=== PATIENT | male | born 1980 | race Caucasian/White ===

== ENCOUNTER 2023-10-29 12:41 | Emergency (ER) | payer OTHER ==
[2023-10-29 13:41] VITALS: BP 168/103; PULSE 104; RESP 18; TEMP 97.1; O2SAT 95
[2023-10-29] MEDS ORDERED: Sodium Chloride 0.9% 1000 ML 1,000 ML IV STA (13:44)
[2023-10-29] MEDS ORDERED: Zofran 4 MG/2 ML VIAL IV ONE (13:44)
[2023-10-29] MEDS ORDERED: SUBLIMAZE 100 MCG/2 ML IV ONE (13:44)
[2023-10-29] MEDS ORDERED: Zofran 4 MG/2 ML VIAL ONE (13:51)
[2023-10-29] MEDS ORDERED: Sodium Chloride 0.9% 1000 ML 1,000 ML ONE (13:52)
[2023-10-29] MEDS ORDERED: SUBLIMAZE 100 MCG/2 ML ONE (13:52)
[2023-10-29 14:12] LABS: Absolute Neutrophil Ct (ANC) 5.67 x10^3/uL (1.4-6.9); BASOPHIL % 0.4 % (0.0-0.4); Basophil (Absolute #) 0.03 x10^3/uL (0-0.4); Eosinophil % 0.9 % (0.00-5.0); Eosinophil (Absolute #) 0.07 x10^3/uL (0-0.5); Hematocrit 42.5 % (42-50); Hemoglobin 14.8 g/dL (12.5-18.0); Lymphocyte (Absolute #) 1.53 x10^3/uL (1.0-4.6); Mean Cell Volume 93.6 fL (78-100); Mean Corpuscular Hemoglobin 32.6 pg (26-32); Mean Corpuscular Hgb Concent. 34.8 g/dL (32-36); Mean Platelet Volume 10.1 fL (7.5-11.0); Monocyte (Absolute #) 0.34 x10^3/uL (0.0-1.3); Monocytes % 4.5 % (0.0-12.0); Neutrophil % 74.2 % (36.0-66.0); Platelet Count 258 x10^3/uL (150-450); Red Blood Count 4.54 x10^6/uL (4.1-5.6); Red Cell Distribution Width 12.5 % (11.5-14.0); White Blood Count 7.6 x10^3/uL (4.0-10.5)
[2023-10-29 14:27] LABS: ALBUMIN 4.7 g/dL (3.5-5.0); ANION GAP 14.4 MEQ/L (5-15); BILIRUBIN,TOTAL 0.7 mg/dL (0.2-1.3); Calcium 9.4 mg/dL (8.4-10.2); Creatinine 1 0.71 mg/dL (0.66-1.25); EST GLOMERULAR FILTRATION RATE 118.2 ML/MIN; Potassium 4.5 mmol/L (3.5-5.1); Total Protein 8.1 g/dL (6.3-8.2)
--- NOTE | 2023-10-29 14:31 | ERPHSYRPT ---
- History of Present Illness Time Seen by Provider: 10/29/23 14:28 Historian: patient Exam Limitations: no limitations Patient Subjective Stated Complaint: sharp stabbing colicky flank pain on left that radiates to the back since about midnight. tylenol does not help. inte rmittent nausea. no vomiting or diarrhea. ambulated to room per self without difficulty. Triage Nursing Assessment: abdomen tender, bs x4, abd soft. A&O x 3. Physician History: sharp stabbing colicky flank pain on left that radiates to the back since about midnight. tylenol does not help. intermittent nausea. no vomiting or diarrhea. Hx of kidney stone in past Timing/Duration: today Activities at Onset: none Quality: cramping Abdominal Pain Onset Location: flank Severity of Pain-Max: moderate Severity of Pain-Current: moderate Modifying Factors: Improves With: nothing Associated Symptoms: denies symptoms Previous symptoms: same symptoms as today Body Map: 1 - pain Allergies/Adverse Reactions: prochlorperazine [From Compazine] Allergy (Intermediate, Verified 10/29/23 1 3:42) Rapid Heart Beat NSAIDS (Non-Steroidal Anti-Inflamma Adverse Reaction (Verified 02/09/15 19:00) Stomach Pain Home Medications: Venlafaxine HCl [Effexor Xr] 150 mg PO DAILY 10/29/23 [History] hydrOXYzine pamoate [Vistaril] 25 mg PO Q4-6HPRN PRN 10/29/23 [History] Hx Tetanus, Diphtheria Vaccination/Date Given: Yes Hx Influenza Vaccination/Date Given: Yes (07/22/23) Hx Pneumococcal Vaccination/Date Given: No Immunizations Up to Date: Yes Travel Risk - International Travel Have you traveled outside of the country in past 3 weeks: No - Coronavirus Screening Are you exhibiting any of the following symptoms?: No - Vaccine Status Have you recieved a Covid-19 vaccination: Yes In School Suspension A[employer]: [employer] - Vaccination Dates Date of 2cond Vaccination (if applicable): 2020 - Review of Systems Constitutional: No Fever, No Chills Eyes: No Symptoms Ears, Nose, & Throat: No Symptoms Respiratory: No Cough, No Dyspnea Cardiac: No Chest Pain, No Edema, No Syncope Abdominal/Gastrointestinal: No Abdominal Pain, No Nausea, No Vomiting, No Diarrhea Genitourinary Symptoms: Flank Pain (left side), No Dysuria Musculoskeletal: No Back Pain, No Neck Pain Skin: No Rash Neurological: No Dizziness, No Focal Weakness, No Sensory Changes Psychological: No Symptoms Endocrine: No Symptoms All Other Systems: Reviewed and Negative - Past Medical History Pertinent Past Medical History: Yes Neurological History: Migraines, Seizures ENT History: No Pertinent History Cardiac History: No Pertinent History Respiratory History: Tuberculosis Endocrine Medical History: Hypothyroidism Musculoskeletal History: No Pertinent History GI Medical History: Diverticulosis, GERD History: No Pertinent History Psycho-Social History: Other Male Reproductive Disorders: No Pertinent History Other Medical History: PTSD, hemochromotosis - Past Surgical History Past Surgical History: Yes Neuro Surgical History: No Pertinent History Cardiac: No Pertinent History Respiratory: No Pertinent History Gastrointestinal: Appendectomy Genitourinary: No Pertinent History Musculoskeletal: Other Male Surgical History: No Pertinent History Other Surgical History: R THIGH SURGERY HAD SHRAPNEL REMOVED 2012 - Social History Smoking Status: Former smoker How long have you smoked: 12YEARS Exposure to second hand smoke: No Drug Use: none Patient Lives Alone: No - Nursing Vital Signs Nursing Vital Signs: Initial Vital Signs Temperature 97.1 F 10/29/23 12:42 Pulse Rate 104 H 10/29/23 12:42 Respiratory Rate 18 10/29/23 12:42 Blood Pressure 168/103 10/29/23 12:42 O2 Sat by Pulse Oximetry 95 10/29/23 12:42 Pain Scale Pain Intensity 3 - Physical Exam SpO2: 95 - Course Nursing assessment & vital signs reviewed: Yes - CT Exams Abdomen/Pelvis CT Interpretation: Tele-radiologist Report Ordered Tests: Active Orders 24 hr Category Date Time Status ABDOMEN AND PELVIS W/0 CONTRAS [CT] Stat Exams 10/29/23 13:44 Completed AMYLASE Stat Lab 10/29/23 14:05 Completed CBC W DIFF Stat Lab 10/29/23 14:05 Completed CMP Stat Lab 10/29/23 14:05 Completed LIPASE Stat Lab 10/29/23 14:05 Completed UA W/RFX UR CULTURE Stat Lab 10/29/23 13:44 Ordered Urine Triage Profile Stat Lab 10/29/23 13:44 Ordered Medication Summary Discontinued Medications Generic Name Dose Route Start Last Admin Trade Name Sera PRN Reason Stop Dose Admin Fentanyl Citrate 50 mcg 10/29/23 13:44 10/29/23 14:03 Fentanyl Citrate 100 Mcg/2 Ml* Vial IV 10/29/23 13:45 50 mcg STAT ONE Administration Fentanyl Citrate Confirm 10/29/23 13:52 Fentanyl Citrate 100 Mcg/2 Ml* Vial Administered 10/29/23 13:53 Dose 100 mcg .ROUTE .STK-MED ONE Sodium Chloride 1,000 mls @ 999 mls/hr 10/29/23 13:44 10/29/23 16:38 Sodium Chloride 0.9% 1000 Ml IV 10/29/23 14:44 Infused .Q1H1M STA Infusion Sodium Chloride Confirm 10/29/23 13:52 Sodium Chloride 0.9% 1000 Ml Administered 10/29/23 13:53 Dose 1,000 mls @ ud .ROUTE .STK-MED ONE Ketorolac Tromethamine 30 mg 10/29/23 15:41 10/29/23 15:54 Ketorolac Tromethamine 30 Mg/Ml Inj IV 10/29/23 15:42 30 mg STAT ONE Administration Ketorolac Tromethamine Confirm 10/29/23 15:52 Ketorolac Tromethamine 30 Mg/Ml Inj Administered 10/29/23 15:53 Dose 30 mg .ROUTE .STK-MED ONE Ondansetron HCl 4 mg 10/29/23 13:44 10/29/23 14:03 Ondansetron Hcl 4 Mg/2 Ml Vial IV 10/29/23 13:45 4 mg STAT ONE Administration Ondansetron HCl Confirm 10/29/23 13:51 Ondansetron Hcl 4 Mg/2 Ml Vial Administered 10/29/23 13:52 Dose 4 mg .ROUTE .STK-MED ONE Lab/Rad Data: Laboratory Result Diagrams 10/29/23 14:05 10/29/23 14:05 Laboratory Results 10/29/23 10/29/23 Range/Units 14:05 14:05 WBC 7.6 (4.0-10.5) x10^3/uL RBC 4.54 (4.1-5.6) x10^6/uL Hgb 14.8 (12.5-18.0) g/dL Hct 42.5 (42-50) % MCV 93.6 (78-100) fL MCH 32.6 H (26-32) pg MCHC 34.8 (32-36) g/dL RDW 12.5 (11.5-14.0) % Plt Count 258 (150-450) x10^3/uL MPV 10.1 (7.5-11.0) fL Gran % 74.2 H (36.0-66.0) % Immature Gran % (Auto) 0.0 (0.00-0.4) % Nucleat RBC Rel Count 0.0 (0.00-0.1) % Eos # (Auto) 0.07 (0-0.5) x10^3/uL Immature Gran # (Auto) 0.00 (0.00-0.03) x10^3u/L Absolute Lymphs (auto) 1.53 (1.0-4.6) x10^3/uL Absolute Monos (auto) 0.34 (0.0-1.3) x10^3/uL Absolute Nucleated RBC 0.00 (0.00-0.01) x10^3u/L Lymphocytes % 20.0 L (24.0-44.0) % Monocytes % 4.5 (0.0-12.0) % Eosinophils % 0.9 (0.00-5.0) % Basophils % 0.4 (0.0-0.4) % Absolute Granulocytes 5.67 (1.4-6.9) x10^3/uL Basophils # 0.03 (0-0.4) x10^3/uL Sodium 137 (137-145) mmol/L Potassium 4.5 (3.5-5.1) mmol/L Chloride 102 (98-107) mmol/L Carbon Dioxide 25 (22-30) mmol/L Anion Gap 14.4 (5-15) MEQ/L BUN 9 (9-20) mg/dL Creatinine 0.71 (0.66-1.25) mg/dL Estimated GFR 118.2 ML/MIN Glucose 187 H (74-106) mg/dL Calcium 9.4 (8.4-10.2) mg/dL Total Bilirubin 0.70 (0.2-1.3) mg/dL AST 37 (17-59) U/L ALT 51 H (0-50) U/L Alkaline Phosphatase 81 (38-126) U/L Serum Total Protein 8.1 (6.3-8.2) g/dL Albumin 4.7 (3.5-5.0) g/dL Amylase 79 (30-110) U/L Lipase 186 (23-300) U/L 0010 CT/ABDOMEN AND PELVIS W/0 CONTRAS CLINICAL HISTORY:left flank pain, r/o kidney stone COMPARISON:None. TECHNIQUE:Non-enhanced spiral multi-slice CT scan of the abdomen and pelvis. FINDINGS: No radio-opaque calculi or pathological calcification seen within both kidneys, both ureters, or the urinary bladder. Normal size and parenchymal thickness of both kidneys with no back-pressure changes. The liver is of average size showing decreased attenuation consistent with fatty infiltration. No focal lesions within the limitations of non-enhanced CT basis. Cholecystectomy surgical clips is seen. No intra-hepatic or extra-hepatic biliary radicles dilatation. Normal size & parenchymal texture of the spleen with no focal lesions seen. A small splenule noted measuring about 9 mm. Normal appearance of the pancreas and both supra renals. Noncomplicated pancolonic diverticulosis without evidence of diverticulitis. The appendix could not be visualized. No abdominal lymph node enlargement was seen. No ascites or abdominal collections noted. Small fat-containing umbilical hernia noted. Adequately filled urinary bladder, appears free from intraluminal stones, mass or diverticular outpouching Average sized prostate. Clear scanned lung bases. IMPRESSION: 1. Limited organ parenchymal evaluation within the limitations of noncontrast study. 2. No acute intra-abdominal abnormality. 3. No CT evidence of hydronephrosis, urolithiasis. 4. Noncomplicated pancolonic diverticulosis without evidence of diverticulitis. 5. Rest of the findings as detailed above. - Progress Progress: improved, pain not gone completely Counseled pt/family regarding: lab results, diagnosis, need for follow-up, rad results Medical Desision Making - Risk of complications Low Risk: Low risk of morbidity from additional dx testing or treatment The pt has a mod risk of morbidity or mortality based on: Need for minor surgical intervention in patient with know risk factors - Departure Departure Disposition: Home Clinical Impression: Flank pain with history of urolithiasis Condition: Stable Critical Care Time: No Referrals: [facility],'[facility] [Primary Care Provider] - Follow up/PCP as directed Instructions: Flank Pain (DC), Flank Pain ED Additional Instructions: Discharge/Care Plan MARIANNA SHEPARD was seen on 10/29/23 in the Emergency Room. The patient was counseled regarding Diagnosis,Lab results, Imaging studies, need for follow up and when to return to the Emergency Room. Prescriptions given: Discharge Note I have spoken with the patient and/or caregivers. I have explained the patient's condition, diagnosis and treatment plan based on the information available to me at this time. I have answered the patient's and/or caregiver's questions and addressed any concerns. The patient and/or caregivers have as good understanding of the patient's diagnosis, condition and treatment plan as can be expected at this point. The vital signs have been stable. The patient's condition is stable and appropriate for discharge from the emergency department. The patient will pursue further outpatient evaluation with the primary care physician or other designated or consulting physician as outlined in the discharge instructions. The patient and/or caregivers are agreeable to this plan of care and follow-up instructions have been explained in detail. The patient and/or caregivers have received these instruction. The patient/and or caregivers are aware that any significant change in condition or worsening of symptoms should prompt an immediate return to this or the closest emergency department or call 911. MARIANNA SHEPARD was seen on 10/29/23 n the Emergency Room. At that time you were treated for an emergent condition, during your visit Laboratory, Radiology and/or other procedures may have been ordered. It is very important that you follow-up with your Primary Care Physician [facility] within the next 24-48 hours to review your Emergency Room visit and the final results of testing that was ordered. Some test results such as Urine Cultures, Blood Cultures, and other cultures if ordered will not be finalized for 24-48 hours. If you do not have a Primary Care Provider please call the medical records department at [phone] to obtain a copy of your results or you may sign into our patient portal to obtain these results by visiting us @ [email or web address] and completing the following steps: 1. Click on the Patient Portal link 2. Click the Patient Self Enrollment Link to complete the enrollment form and entering your 3. Once the enrollment form is completed you will receive an email with a temporary ID and password at the email address you provided. 4. Next choose a user name and password. Your user name must be at least 4 characters long and your password must be at least 4 characters long. 5. Choose a security question from the list and provide your answer to the question. If you already have signed into the Health Portal you may access your Health Care Information 13/06 by the following steps: 1. Login to our website @ [email or web address] 2. Enter your original user name and password. FAQS The [facility] Health Portal is an online tool that contains your Lab Results, Radiology Reports, Visit History, Discharge Instructions and Health Summary Lab and Radiology Results will not be available for 72 hours on the portal. The Portal is a secure site, passwords are encryted and URLs are re-written so they cannot be copied and pasted. You and authorized family members are the only ones who can access your Portal. Also there is a timeout feature that protects your information if you leave the Portal page open. If you have technical difficulty please use the Contact Us link on the page this will allow you to submit any questions you have regarding the Portal or you may contact the Medical Record Department at [phone]. Prescriptions: Tamsulosin HCl 0.4 mg [Flomax 0.4 MG] 0.4 mg PO DAILY 30 Days #30 cap Tramadol HCl 50 mg [Ultram 50 mg] 50 mg PO QID #20 tablet
--- NOTE | 2023-10-29 15:09 | XRAY ---
CLINICAL HISTORY:left flank pain, r/o kidney stone COMPARISON:None. TECHNIQUE:Non-enhanced spiral multi-slice CT scan of the abdomen and pelvis. FINDINGS: No radio-opaque calculi or pathological calcification seen within both kidneys, both ureters, or the urinary bladder. Normal size and parenchymal thickness of both kidneys with no back-pressure changes. The liver is of average size showing decreased attenuation consistent with fatty infiltration. No focal lesions within the limitations of non-enhanced CT basis. Cholecystectomy surgical clips is seen. No intra-hepatic or extra-hepatic biliary radicles dilatation. Normal size & parenchymal texture of the spleen with no focal lesions seen. A small splenule noted measuring about 9 mm. Normal appearance of the pancreas and both supra renals. Noncomplicated pancolonic diverticulosis without evidence of diverticulitis. The appendix could not be visualized. No abdominal lymph node enlargement was seen. No ascites or abdominal collections noted. Small fat-containing umbilical hernia noted. Adequately filled urinary bladder, appears free from intraluminal stones, mass or diverticular outpouching Average sized prostate. Clear scanned lung bases. IMPRESSION: 1. Limited organ parenchymal evaluation within the limitations of noncontrast study. 2. No acute intra-abdominal abnormality. 3. No CT evidence of hydronephrosis, urolithiasis. 4. Noncomplicated pancolonic diverticulosis without evidence of diverticulitis. 5. Rest of the findings as detailed above. Electronically Signed by: Ambrose Ha MD. (10/29/2023 15:04:19 EST)
[2023-10-29] MEDS ORDERED: TORAdol 30 mg Injection IV ONE (15:41)
[2023-10-29] MEDS ORDERED: TORAdol 30 mg Injection ONE (15:52)
== END 2023-10-29 18:13 | disposition home or self-care (01) ==
LOC: ED 12:41 → EDSEX 12:41 → ED 18:13
DX: R10.9 Unspecified abdominal pain (principal); Z87.442 Personal history of urinary calculi; R11.0 Nausea; Z79.891 Long term (current) use of opiate analgesic; Z79.899 Other long term (current) drug therapy
CPT/HCPCS: 36415; 74176; 80053; 82150; 83690; 85025; 96360; 96374; 96375; 99284; J1885; J2405; J3010

== ENCOUNTER 2025-08-12 02:37 | Emergency (ER) | payer OTHER ==
[2025-08-12 02:54] VITALS: TEMP 96.4
[2025-08-12] MEDS ORDERED: Zofran 4 MG/2 ML VIAL ONE ×3 (03:40→15:53)
[2025-08-12] MEDS ORDERED: BENADRYL 50 MG/ML ONE (03:40)
[2025-08-12] MEDS ORDERED: MORPHINE SULFATE 4 MG INJ ONE ×2 (03:40→06:15)
[2025-08-12] MEDS: MORPHINE SULFATE 4 MG INJ IV ONE ×2 (03:42→06:15)
[2025-08-12] MEDS: BENADRYL 50 MG/ML IV ONE (03:43)
[2025-08-12] MEDS: Zofran 4 MG/2 ML VIAL IV ONE ×3 (03:44→15:58)
--- NOTE | 2025-08-12 03:44 | ERPHSYRPT ---
- History of Present Illness Time Seen by Provider: 08/12/25 03:00 Source: patient Exam Limitations: no limitations Patient Subjective Stated Complaint: c/o wound check Triage Nursing Assessment: patient brought to ED with c/o wound check. patient states that he had an abcess on his scrotum and had an I&D in [facility] 14 days ago. Patient had a second I&D 8 days ago and spent 6 days in the hospital on antibiotics. patient is currently taking doxycycline. rates pain 8/10 at this time. wound is 4cm in length, 1cm in width, and 2cm in depth. MANAGER BODY at this time. patient is hypertensive, tachycardic, afebrile, gait steady, patient doesn't appear to be in any distress at this time. Physician History: Patient is a 45-year-old male history of seizures and migraine type 2 diabetes hypothyroidism diverticulosis current smoker presents to our ED for evaluation of scrotal pain. Patient had a scrotal abscess that was managed by [facility]. Abscess was incised and drained approximately 2 weeks ago. He had a second I&D 8 days ago and later spent 6 days in the hospital on IV antibiotics. Patient currently on doxycycline and states that his scrotal pain is 8 out of 10. The scrotal wound is now healing via secondary intention. It currently measures 1 cm x 2 cm. Pain is localized no radiation. Pain worse with manipulation of the scrotum. No nausea no vomiting no diarrhea no rash no fever. Patient voices no other complaints or concerns at this time. Portions of this note were created with voice recognition technology. There may be grammatical, spelling, punctuation or sound alike errors Timing/Duration: today Severity: moderate Modifying Factors: Improves With: nothing Associated Symptoms: denies symptoms Allergies/Adverse Reactions: prochlorperazine [From Compazine] Allergy (Intermediate, Verified 08/12/25 02:43) Rapid Heart Beat shellfish derived Allergy (Verified 08/12/25 02:43) Anaphylactic Reaction hydrocodone Adverse Reaction (Intermediate, Verified 08/12/25 02:43) Itching hydromorphone Adverse Reaction (Intermediate, Verified 08/12/25 02:43) Itching NSAIDS (Non-Steroidal Anti-Inflamma Adverse Reaction (Verified 08/12/25 02:43) Stomach Pain Home Medications: Insulin Glargine [Lantus Insulin] 20 unit SQ DAILY 07/18/25 [History] Insulin Lispro [Humalog] 1 unit SQ TIDWM 07/18/25 [History] Losartan Potassium 50 mg [Cozaar 50 MG] 50 mg PO DAILY 07/18/25 [History] Metformin HCl 500 mg [Glucophage 500 MG] 1,000 mg PO BIDWM 07/18/25 [History] Venlafaxine HCl ER 75 mg [Effexor XR 75 MG] 225 mg PO DAILY 07/18/25 [History] PANTOPRAZOLE 40 mg Tablet [Protonix 40MG Tablet] 40 mg PO DAILY PRN PRN 07/20/25 [History] Doxycycline Hyclate 100 mg PO DAILY 08/12/25 [History] Oxycodone / APAP 10/325 mg [Oxycodone-Acetaminophen 10-325] 1 tab PO Q6H PRN PRN 08/12/25 [History] Hx Tetanus, Diphtheria Vaccination/Date Given: Yes Hx Influenza Vaccination/Date Given: Yes Hx Pneumococcal Vaccination/Date Given: No Travel Risk - International Travel Have you traveled outside of the country in past 3 weeks: No - Emerging Infectious Disease Are you exhibiting symptoms associated with any current EIDs: No - Review of Systems All Other Systems: Reviewed and Negative - Past Medical History Pertinent Past Medical History: Yes Neurological History: Migraines, Seizures ENT History: No Pertinent History Cardiac History: No Pertinent History Respiratory History: Tuberculosis Endocrine Medical History: Diabetes Type II, Hypothyroidism Musculoskeletal History: No Pertinent History GI Medical History: Diverticulosis, GERD History: No Pertinent History Psycho-Social History: Other Male Reproductive Disorders: No Pertinent History Other Medical History: PTSD, hemochromotosis. positive TB skin test-underwent 9 mos of treatment in 2006-states CXR was negative - Past Surgical History Past Surgical History: Yes Neuro Surgical History: No Pertinent History Cardiac: No Pertinent History Respiratory: No Pertinent History Gastrointestinal: Appendectomy Genitourinary: No Pertinent History Musculoskeletal: Other Male Surgical History: No Pertinent History Other Surgical History: R THIGH SURGERY HAD SHRAPNEL REMOVED 2012, I & D x 2 - Social History Smoking Status: Current every day smoker Exposure to second hand smoke: No Drug Use: none - Social Determinants of Health Will the patient participate in the screening: Yes Do you worry about a steady place to live?: No Do you have any problems with any of the following?: No known problems In the past 12 months,have you had to go without utilities?: No Transportation Issues: No Has anyone in your support network made you feel unsafe?: No Have you or anyone in your house had to go w/o enough food: No - Nursing Vital Signs Nursing Vital Signs: Initial Vital Signs Temperature 96.4 F 08/12/25 02:43 Pulse Rate 119 H 08/12/25 02:43 Respiratory Rate 19 08/12/25 02:43 Blood Pressure 162/97 08/12/25 02:43 O2 Sat by Pulse Oximetry 97 08/12/25 02:43 Pain Scale Pain Intensity 7 - Physical Exam General Appearance: no apparent distress, alert Eye Exam: PERRL/EOMI, eyes nml inspection Ears, Nose, Throat Exam: normal ENT inspection, moist mucous membranes Neck Exam: normal inspection, full range of motion Respiratory Exam: normal breath sounds, lungs clear, airway intact, No respiratory distress Cardiovascular Exam: regular rate/rhythm Gastrointestinal/Abdomen Exam: soft, normal bowel sounds, No tenderness, No mass Back Exam: normal inspection, normal range of motion, No CVA tenderness, No vertebral tenderness Extremity Exam: normal inspection, normal range of motion, pelvis stable Neurologic Exam: alert, oriented x 3, cooperative, normal mood/affect, sensation nml, No motor deficits Skin Exam: normal color, warm, dry, No rash Lymphatic Exam: No adenopathy SpO2 Interpretation: normal SpO2: 97 O2 Delivery: Room Air - Course Nursing assessment & vital signs reviewed: Yes - Radiology Ultrasound Exam Scrotal Ultrasound: discussed w/radiologist (Negative for torsion. Multiple tiny epididymal cysts right varicocele gas air artifact visualized right testicle) Ordered Tests: Active Orders 24 hr Category Date Time Status Scale Agent STAT Care 08/12/25 03:34 Active IV Insertion STAT Care 08/12/25 03:34 Active Pulse Oximetry (ED) STAT Care 08/12/25 03:34 Active Telemetry q4h Care 08/12/25 05:06 Active ABDOMEN AND PELVIS W/0 CONTRAS [CT] Stat Exams 08/12/25 03:34 Completed TESTICLE [US] Stat Exams 08/12/25 03:37 Taken CBC W DIFF Stat Lab 08/12/25 03:40 Completed CMP Stat Lab 08/12/25 03:40 Completed Lactic Acid Stat Lab 08/12/25 04:05 Completed Lactic Acid Stat Lab 08/12/25 06:12 Received UA W/RFX UR CULTURE Stat Lab 08/12/25 05:23 Completed Transfer Order Routine Transfer 08/12/25 Ordered Medication Summary Generic Name Dose Route Start Last Admin Trade Name Sera PRN Reason Stop Dose Admin Sodium Chloride 1,000 mls @ 100 mls/hr 08/12/25 03:45 08/12/25 05:53 Sodium Chloride 0.9% 1000 Ml IV 09/11/25 03:44 999 mls/hr .Q10H VIET Infusion Magnesium Sulfate/Dextrose 100 mls @ 100 mls/hr 08/12/25 05:15 Magnesium 1 Gm / 100 Ml D5w IV 08/12/25 07:14 Q1H VIET Potassium Chloride 20 meq in 100 mls @ 50 mls/hr 08/12/25 05:15 08/12/25 05:10 Potassium Chloride 20 Meq In Water 100ml IV 08/12/25 09:14 50 mls/hr Q2H VIET Administration Discontinued Medications Generic Name Dose Route Start Last Admin Trade Name Sera PRN Reason Stop Dose Admin Diphenhydramine HCl 25 mg 08/12/25 03:36 08/12/25 03:43 Diphenhydramine Hcl 50 Mg/Ml Vial IV 08/12/25 03:37 25 mg STAT ONE Administration Diphenhydramine HCl Confirm 08/12/25 03:40 Diphenhydramine Hcl 50 Mg/Ml Vial Administered 08/12/25 03:41 Dose 50 mg .ROUTE .STK-MED ONE Morphine Sulfate 4 mg 08/12/25 03:36 08/12/25 03:42 Morphine Sulfate 4 Mg/Ml Injection IV 08/12/25 03:37 4 mg STAT ONE Administration Morphine Sulfate Confirm 08/12/25 03:40 Morphine Sulfate 4 Mg/Ml Injection Administered 08/12/25 03:41 Dose 4 mg .ROUTE .STK-MED ONE Morphine Sulfate 4 mg 08/12/25 06:11 08/12/25 06:15 Morphine Sulfate 4 Mg/Ml Injection IV 08/12/25 06:12 4 mg STAT ONE Administration Morphine Sulfate Confirm 08/12/25 06:15 Morphine Sulfate 4 Mg/Ml Injection Administered 08/12/25 06:16 Dose 4 mg .ROUTE .STK-MED ONE Ondansetron HCl 4 mg 08/12/25 03:36 08/12/25 03:44 Ondansetron Hcl 4 Mg/2 Ml Vial IV 08/12/25 03:37 4 mg STAT ONE Administration Ondansetron HCl Confirm 08/12/25 03:40 Ondansetron Hcl 4 Mg/2 Ml Vial Administered 08/12/25 03:41 Dose 4 mg .ROUTE .STK-MED ONE Potassium Chloride 40 meq 08/12/25 05:06 08/12/25 05:09 Potassium Chloride Tab 10 Meq Tab PO 08/12/25 05:07 40 meq STAT ONE Administration Potassium Chloride Confirm 08/12/25 05:09 Potassium Chloride Tab 10 Meq Tab Administered 08/12/25 05:10 Dose 40 meq .ROUTE .STK-MED ONE Lab/Rad Data: Laboratory Result Diagrams 08/12/25 03:40 08/12/25 03:40 Laboratory Results 08/12/25 08/12/25 08/12/25 Range/Units 05:23 04:05 03:40 WBC (4.23-9.07) x10^3/uL RBC (4.63-6.08) x10^6/uL Hgb (13.7-17.5) g/dL Hct (40.1-51.0) % MCV (79.0-92.2) fL MCH (25.7-32.2) pg MCHC (32.3-36.5) g/dL RDW (11.6-14.4) % Plt Count (163-337) x10^3/uL MPV (9.4-12.4) fL Gran % (34.0-67.9) % Immature Gran % (Auto) (0.001-0.429) % Nucleat RBC Rel Count (0.00-0.2) % Eos # (Auto) (0.04-0.54) x10^3/uL Immature Gran # (Auto) (0.001-0.031) x10^3u/L Absolute Lymphs (auto) (1.32-3.57) x10^3/uL Absolute Monos (auto) (0.30-0.82) x10^3/uL Absolute Nucleated RBC (0.00-0.012) x10^3u/L Lymphocytes % (21.8-53.1) % Monocytes % (5.3-12.2) % Eosinophils % (0.8-7.0) % Basophils % (0.2-1.2) % Absolute Granulocytes (1.78-5.38) x10^3/uL Basophils # (0.01-0.08) x10^3/uL Sodium 137 (135-145) mmol/L Potassium 2.9 L* (3.5-5.1) mmol/L Chloride 99 (98-107) mmol/L Carbon Dioxide 25 (22-30) mmol/L Anion Gap 14.8 (5-15) MEQ/L BUN 17 (9-20) mg/dL Creatinine 1.04 (0.66-1.25) mg/dL Estimated GFR 91.4 ML/MIN Glucose 202 H (74-106) mg/dL Lactic Acid 2.3 H (0.4-2.0) Calcium 9.4 (8.4-10.2) mg/dL Total Bilirubin 0.40 (0.2-1.3) mg/dL AST 34 (17-59) U/L ALT 50 (0-50) U/L Alkaline Phosphatase 106 (38-126) U/L Serum Total Protein 7.5 (6.3-8.2) g/dL Albumin 4.6 (3.5-5.0) g/dL Urine Color Yellow (Yellow) Urine Appearance Clear (Clear) Urine pH 6.0 (4.6-8.0) Ur Specific Sayre >=1.030 A (1.005-1.030) Urine Protein Trace A (Negative) Urine Glucose (UA) 100 A (Negative) mg/dL Urine Ketones Trace A (Negative) Urine Blood Negative (Negative) Urine Nitrite Negative (Negative) Urine Bilirubin Negative (Negative) Urine Urobilinogen 1.0 A (0.2) mg/dL Ur Leukocyte Esterase Negative (Negative) U Hyaline Cast (Auto) NONE SEEN (0-2) /LPF Urine Microscopic RBC 0-2 (0-5) /HPF Urine Microscopic WBC 0-2 (0-5) /HPF Ur Epithelial Cells None Seen (None Seen) /HPF Urine Bacteria None Seen (None Seen) /HPF Urine Culture Reflexed NO (NO) 08/12/25 Range/Units 03:40 WBC 7.1 (4.23-9.07) x10^3/uL RBC 4.13 L (4.63-6.08) x10^6/uL Hgb 13.7 (13.7-17.5) g/dL Hct 38.8 L (40.1-51.0) % MCV 93.9 H (79.0-92.2) fL MCH 33.2 H (25.7-32.2) pg MCHC 35.3 (32.3-36.5) g/dL RDW 12.1 (11.6-14.4) % Plt Count 289 (163-337) x10^3/uL MPV 10.3 (9.4-12.4) fL Gran % 70.7 H (34.0-67.9) % Immature Gran % (Auto) 0.3 (0.001-0.429) % Nucleat RBC Rel Count 0.0 (0.00-0.2) % Eos # (Auto) 0.16 (0.04-0.54) x10^3/uL Immature Gran # (Auto) 0.02 (0.001-0.031) x10^3u/L Absolute Lymphs (auto) 1.31 L (1.32-3.57) x10^3/uL Absolute Monos (auto) 0.58 (0.30-0.82) x10^3/uL Absolute Nucleated RBC 0.00 (0.00-0.012) x10^3u/L Lymphocytes % 18.3 L (21.8-53.1) % Monocytes % 8.1 (5.3-12.2) % Eosinophils % 2.2 (0.8-7.0) % Basophils % 0.4 (0.2-1.2) % Absolute Granulocytes 5.04 (1.78-5.38) x10^3/uL Basophils # 0.03 (0.01-0.08) x10^3/uL Sodium (135-145) mmol/L Potassium (3.5-5.1) mmol/L Chloride (98-107) mmol/L Carbon Dioxide (22-30) mmol/L Anion Gap (5-15) MEQ/L BUN (9-20) mg/dL Creatinine (0.66-1.25) mg/dL Estimated GFR ML/MIN Glucose (74-106) mg/dL Lactic Acid (0.4-2.0) Calcium (8.4-10.2) mg/dL Total Bilirubin (0.2-1.3) mg/dL AST (17-59) U/L ALT (0-50) U/L Alkaline Phosphatase (38-126) U/L Serum Total Protein (6.3-8.2) g/dL Albumin (3.5-5.0) g/dL Urine Color (Yellow) Urine Appearance (Clear) Urine pH (4.6-8.0) Ur Specific Sayre (1.005-1.030) Urine Protein (Negative) Urine Glucose (UA) (Negative) mg/dL Urine Ketones (Negative) Urine Blood (Negative) Urine Nitrite (Negative) Urine Bilirubin (Negative) Urine Urobilinogen (0.2) mg/dL Ur Leukocyte Esterase (Negative) U Hyaline Cast (Auto) (0-2) /LPF Urine Microscopic RBC (0-5) /HPF Urine Microscopic WBC (0-5) /HPF Ur Epithelial Cells (None Seen) /HPF Urine Bacteria (None Seen) /HPF Urine Culture Reflexed (NO) - Progress Progress: improved Progress Note: Patient is a 45-year-old male history of seizures and migraine type 2 diabetes hypothyroidism diverticulosis current smoker presents to our ED for evaluation of scrotal pain. Patient currently has a scrotal wound that is closing via secondary intention. In light of patient's significant scrotal pain we are concerned with possible torsion. Ultrasound negative for torsion. Additionally in light of patient's history of diabetes were concern for possible Duy's gangrene or ascending infection from the scrotum. CT scan negative for Duy's gangrene. Laboratory workup revealed a significant hypokalemia at 2.9. Magnesium sulfate and K rider ordered. Patient will require hospitalization for further correction of hypokalemia. Lactic acid elevated at 2.3. IV fluids administered. Plan of care discussed with patient. He agrees to admission at [facility] for further evaluation and treatment. History obtained from patient. Differential diagnosis includes postprocedural scrotal pain, torsion, Duy's gangrene Portions of this note were created with voice recognition technology. There may be grammatical, spelling, punctuation or sound alike errors Complexity of problem addressed is moderate acute complicated. No critical care time. Complex of data reviewed and analyzed as extensive. Test ordered test reviewed results analyzed and correlated clinically with history and physical exam. Risk of complication and or risk of morbidity/mortality of patient management is high. Patient requires hospitalization for further evaluation and treatment. Vital stable. Time spent to admit patient is approximately 15 minutes. Plan of care established for shared decision making. No social determinants of health present to impede follow-up. Portions of this note were created with voice recognition technology. There may be grammatical, spelling, punctuation or sound alike errors 08/12/25 06:19 Case discussed with hospitalist who accepts admission to observation at 6:28 AM 08/12/25 06:21 Counseled pt/family regarding: diagnosis, need for follow-up - Departure Departure Disposition: Observation Clinical Impression: Lactic acidosis, Hypokalemia, Scrotal pain, Dehydration, Hepatomegaly, Hyperglycemia Condition: Stable Critical Care Time: No Referrals: HOSPITAL,'S [Primary Care Provider, UNKNOWN] - Follow up/PCP as directed
[2025-08-12 03:50] LABS: BASOPHIL % 0.4 % (0.2-1.2); Basophil (Absolute #) 0.03 x10^3/uL (0.01-0.08); Eosinophil (Absolute #) 0.16 x10^3/uL (0.04-0.54); Hematocrit 38.8 % (40.1-51.0); Hemoglobin 13.7 g/dL (13.7-17.5); IMMATURE GRAN # 0.02 x10^3u/L (0.001-0.031); IMMATURE GRAN % 0.3 % (0.001-0.429); Lymphocyte (Absolute #) 1.31 x10^3/uL (1.32-3.57); Mean Corpuscular Hemoglobin 33.2 pg (25.7-32.2); Mean Corpuscular Hgb Concent. 35.3 g/dL (32.3-36.5); Monocyte (Absolute #) 0.58 x10^3/uL (0.30-0.82); NUCLEATED RBC # 0.00 x10^3u/L (0.00-0.012); NUCLEATED RBC % 0.0 % (0.00-0.2); Platelet Count 289 x10^3/uL (163-337); Red Blood Count 4.13 x10^6/uL (4.63-6.08); White Blood Count 7.1 x10^3/uL (4.23-9.07)
[2025-08-12 04:18] LABS: Calcium 9.4 mg/dL (8.4-10.2); Carbon Dioxide 25.0 mmol/L (22-30); Creatinine 1 1.04 mg/dL (0.66-1.25); EST GLOMERULAR FILTRATION RATE 91.4 ML/MIN; Glucose 202.0 mg/dL (74-106); SGOT/AST 34.0 U/L (17-59); SGPT/ALT 50.0 U/L (0-50); Total Protein 7.5 g/dL (6.3-8.2)
[2025-08-12 04:25] LABS: Potassium 2.9 mmol/L (3.5-5.1)
--- NOTE | 2025-08-12 05:08 | XRAY ---
CLINICAL HISTORY: Pain COMPARISON: 07/19/2025. TECHNIQUE: CT of the abdomen and pelvis was performed using the following protocol: axial images, as well as reconstructed coronal and sagittal images. No intravenous contrast was administered. One of the following dose reduction techniques was utilized for this exam: automated exposure control, adjustment of the mA and/or kV according to patient size, and use of iterative reconstruction. FINDINGS: Abdomen: There is interval resolution of previously seen inflammation of the superior portion of the urachal duct, adjacent to the anterior abdominal wall, with remission of a focal collection of mottled air lucencies along the right paramedian anterior abdominal wall in the infraumbilical region, with mild surrounding fat stranding. Liver: The liver measures 18.5 cm in size and demonstrates fatty infiltration, which is stable. No focal lesions, cysts, or masses are identified. Gallbladder and Biliary System: Post-cholecystectomy status. Pancreas: The pancreatic head, body, and tail are visualized and appear normal in size and density. Spleen: The spleen is normal in size, shape, and density. A small splenunculus is noted. Kidneys and Adrenal Glands: Mild bilateral perinephric fat stranding is again noted. Both kidneys are normal in size. No renal calculi or hydronephrosis are identified. The adrenal glands are unremarkable. Pelvis: Urinary Bladder: There is a mildly thick-walled urinary bladder, despite suboptimal distention, representing features of mild cystitis. Excreted contrast due to a prior contrast CT study is noted. The prostate appears unremarkable. Peritoneal and Retroperitoneal Structures: No free fluid or abnormal fluid collections are identified within the abdomen or pelvis. Subcentimetric mesenteric nodes are noted. Bowel: Uncomplicated colonic diverticulosis is again noted. The visualized small bowel loops are normal in caliber and appearance. Post-appendicectomy status. Bones and Soft Tissues: Mild degenerative changes are present in the lumbar spine. A small umbilical hernia containing omental fat is stable. IMPRESSION: 1. A mildly thick-walled urinary bladder, despite suboptimal distention, represents features of mild cystitis. This is a new interval finding. Clinical correlation with urinalysis is recommended. 2. Interval resolution of previously seen inflammation of the superior portion of the urachal duct, adjacent to the anterior abdominal wall, with remission of a focal collection of mottled air lucencies along the right paramedian anterior abdominal wall in the infraumbilical region with mild surrounding fat stranding. 3. Uncomplicated colonic diverticulosis is again noted. 4. Mild hepatomegaly with fatty infiltration, unchanged. Electronically Signed by: Morales Scott MD. (08/12/2025 05:05:58 EDT)
[2025-08-12] MEDS ORDERED: POTASSIUM CHLORIDE 20 mEq IN WATER 100ML 100 ML IV ONE ×2 (05:09→07:20)
[2025-08-12] MEDS ORDERED: Klor Con ONE (05:09)
[2025-08-12] MEDS: Klor Con PO ONE (05:09)
[2025-08-12] MEDS: POTASSIUM CHLORIDE 20 mEq IN WATER 100ML 20 MEQ/100 ML BAG IV SCH (05:10)
[2025-08-12 05:34] LABS: Glucose, Urine 100 mg/dL (Negative); Protein,Urine Dip Trace (Negative); RBC 0-2 /HPF (0-5); WBC 0-2 /HPF (0-5)
[2025-08-12] MEDS ORDERED: Magnesium 1 Gm / 100 Ml D5W*** 100 ML IV ONE ×2 (06:27→07:12)
[2025-08-12] MEDS: Magnesium 1 Gm / 100 Ml D5W*** 100 ML IV SCH (06:27)
[2025-08-12] MEDS ORDERED: Lactated Ringers 1,000 ML IV ONE (06:44)
[2025-08-12] MEDS: Lactated Ringers 1,000 ML IV SCH (06:45)
--- NOTE | 2025-08-12 08:44 | XRAY ---
Indication: Pain following surgery. Open incision. on Two-dimensional testicular sonogram performed. Comparison: None Right groin/scrotal wall limited by overlying gas artifact. Both testicles are homogeneous in echogenicity with normal color perfusion. Right testicle measures 3.0 x 1.9 x 3.2 cm and left measures 3.8 x 1.9 x 2.2 cm. A few bilateral epididymal cysts, largest on the right measuring 8 mm. Incidental mild right varicoceles. No suspicious extratesticular mass or hydrocele. Impression: Right-sided varicoceles. Tiny bilateral epididymal cysts. Negative for testicular torsion. Comment: Preliminary report was given.
[2025-08-12] MEDS ORDERED: Hydromorphone 1 mg/ml Injection ONE ×3 (08:56→15:53)
[2025-08-12] MEDS: Hydromorphone 1 mg/ml Injection IV ONE ×3 (08:57→15:54)
[2025-08-12 14:16] VITALS: O2SAT 96
[2025-08-12 17:10] VITALS: BP 118/85; PULSE 87; RESP 18
== END 2025-08-12 16:30 | disposition short-term general hospital (02) ==
LOC: ED 02:37
DX: E87.20 Acidosis, unspecified (principal); E87.6 Hypokalemia; N50.82 Scrotal pain; E86.0 Dehydration; R16.0 Hepatomegaly, not elsewhere classified; E11.65 Type 2 diabetes mellitus with hyperglycemia; S31.30XA Unspecified open wound of scrotum and testes, initial encounter; L08.9 Local infection of the skin and subcutaneous tissue, unspecified; Z79.4 Long term (current) use of insulin; Z79.84 Long term (current) use of oral hypoglycemic drugs; Z79.891 Long term (current) use of opiate analgesic; Z79.899 Other long term (current) drug therapy; Z72.0 Tobacco use

== ENCOUNTER 2025-09-26 10:57 | Observation (INO) | payer OTHER ==
--- NOTE | 2025-09-26 11:27 | ERPHSYRPT ---
- History of Present Illness Patient Subjective Stated Complaint: Pt went for IV antibiotics at [place] 2-3 days ago and his arm is swollen and purple Triage Nursing Assessment: Pt brought self to the ER, tachycardic, hypertensive, rates pain as 8/10, pulses normal, skin tachy, denies chest pain, no difficulty breathing, was doing IV antibiotics for an ongoing wound to his scrotum Physician History: Right arm swelling and rash, patient was discharged from [facility] after staying overnight to receive IV antibiotics for a scrotal infection, he states that he had a lot of pain at the insertion site of the IV but was told the IV was functioning fine, since being discharged the rashes got progressively worse and his pain has gotten worse also, he also states that he has been coughing and coughed up some blood, it was about a teaspoons worth, he denied any shortness of breath, he denied any chest pain Timing/Duration: day(s) (3) Severity: moderate Modifying Factors: Improves With: movement Associated Symptoms: cough Allergies/Adverse Reactions: prochlorperazine [From Compazine] Allergy (Intermediate, Verified 09/26/25 11:08) Rapid Heart Beat shellfish derived Allergy (Verified 09/26/25 11:08) Anaphylactic Reaction hydrocodone Adverse Reaction (Intermediate, Verified 09/26/25 11:08) Itching hydromorphone Adverse Reaction (Intermediate, Verified 09/26/25 11:08) Itching NSAIDS (Non-Steroidal Anti-Inflamma Adverse Reaction (Verified 09/26/25 11:08) Stomach Pain Home Medications: Insulin Glargine [Lantus Insulin] 20 unit SQ DAILY 07/18/25 [History] Insulin Lispro [Humalog] 1 unit SQ TIDWM 07/18/25 [History] Losartan Potassium 50 mg [Cozaar 50 MG] 50 mg PO DAILY 07/18/25 [History] Metformin HCl 500 mg [Glucophage 500 MG] 1,000 mg PO BIDWM 07/18/25 [History] Venlafaxine HCl ER 75 mg [Effexor XR 75 MG] 225 mg PO DAILY 07/18/25 [History] PANTOPRAZOLE 40 mg Tablet [Protonix 40MG Tablet] 40 mg PO DAILY PRN PRN 07/20/25 [History] Hx Tetanus, Diphtheria Vaccination/Date Given: Yes Hx Influenza Vaccination/Date Given: Yes Hx Pneumococcal Vaccination/Date Given: No Travel Risk - International Travel Have you traveled outside of the country in past 3 weeks: No - Emerging Infectious Disease Are you exhibiting symptoms associated with any current EIDs: No - Past Medical History Pertinent Past Medical History: Yes Neurological History: Migraines, Seizures ENT History: No Pertinent History Cardiac History: No Pertinent History Respiratory History: Tuberculosis Endocrine Medical History: Diabetes Type II, Hypothyroidism Musculoskeletal History: No Pertinent History GI Medical History: Diverticulosis, GERD History: No Pertinent History Psycho-Social History: Other Male Reproductive Disorders: No Pertinent History Other Medical History: PTSD, hemochromotosis. positive TB skin test-underwent 9 mos of treatment in 2005-states CXR was negative - Past Surgical History Past Surgical History: Yes Neuro Surgical History: No Pertinent History Cardiac: No Pertinent History Respiratory: No Pertinent History Gastrointestinal: Appendectomy Genitourinary: No Pertinent History Musculoskeletal: Other Male Surgical History: No Pertinent History Other Surgical History: R THIGH SURGERY HAD SHRAPNEL REMOVED 2012, I & D x 2 - Social History Smoking Status: Current every day smoker How long have you smoked: vapes Exposure to second hand smoke: No Drug Use: none - Social Determinants of Health Will the patient participate in the screening: Yes Do you worry about a steady place to live?: No Do you have any problems with any of the following?: No known problems In the past 12 months,have you had to go without utilities?: No Transportation Issues: No Has anyone in your support network made you feel unsafe?: No Have you or anyone in your house had to go w/o enough food: No - Nursing Vital Signs Nursing Vital Signs: Initial Vital Signs Blood Pressure 162/102 09/26/25 11:01 O2 Sat by Pulse Oximetry 98 09/26/25 11:01 Pain Scale Pain Intensity 8 - Physical Exam General Appearance: no apparent distress, alert, obese Eye Exam: PERRL/EOMI, eyes nml inspection Ears, Nose, Throat Exam: normal ENT inspection, TMs normal, pharynx normal, moist mucous membranes Neck Exam: normal inspection, non-tender, supple, full range of motion Respiratory Exam: normal breath sounds, lungs clear, No respiratory distress Cardiovascular Exam: regular rate/rhythm, normal heart sounds, normal peripheral pulses Gastrointestinal/Abdomen Exam: soft, normal bowel sounds, No tenderness, No mass Back Exam: normal inspection, normal range of motion, No CVA tenderness, No vertebral tenderness Extremity Exam: normal range of motion, pelvis stable, swelling (Right forearm), tenderness (Right forearm) Neurologic Exam: alert, oriented x 3, cooperative, normal mood/affect, nml cerebellar function, nml station & gait, sensation nml, No motor deficits Skin Exam: normal color, warm, dry, rash, ecchymosis, mottled, pale Lymphatic Exam: No adenopathy SpO2 Interpretation: normal SpO2: 97 Ordered Tests: Active Orders 24 hr Category Date Time Status IV Insertion STAT Care 09/26/25 11:28 Active CHEST 2 VIEWS (PA AND LAT) Stat Exams 09/26/25 11:15 Completed VENOUS UNILAT/LIMITED EXTREMIT [US] Stat Exams 09/26/25 11:14 Completed CBC W DIFF Stat Lab 09/26/25 12:05 Completed CMP Stat Lab 09/26/25 12:05 Completed Lactic Acid Stat Lab 09/26/25 12:00 Completed Medication Summary Discontinued Medications Generic Name Dose Route Start Last Admin Trade Name Freq PRN Reason Stop Dose Admin Morphine Sulfate 4 mg 09/26/25 12:15 09/26/25 12:20 Morphine Sulfate 4 Mg/Ml Injection IV 09/26/25 12:16 4 mg STAT ONE Administration Morphine Sulfate Confirm 09/26/25 12:18 Morphine Sulfate 4 Mg/Ml Injection Administered 09/26/25 12:19 Dose 4 mg .ROUTE .STK-MED ONE Ondansetron HCl 4 mg 09/26/25 12:15 09/26/25 12:19 Ondansetron Hcl 4 Mg/2 Ml Vial IV 09/26/25 12:16 4 mg STAT ONE Administration Ondansetron HCl Confirm 09/26/25 12:17 Ondansetron Hcl 4 Mg/2 Ml Vial Administered 09/26/25 12:18 Dose 4 mg .ROUTE .STK-MED ONE Lab/Rad Data: Laboratory Result Diagrams 09/26/25 12:05 09/26/25 12:05 Laboratory Results 09/26/25 09/26/25 09/26/25 Range/Units 12:05 12:05 12:00 WBC 5.4 (4.23-9.07) x10^3/uL RBC 4.03 L (4.63-6.08) x10^6/uL Hgb 13.4 L (13.7-17.5) g/dL Hct 38.4 L (40.1-51.0) % MCV 95.3 H (79.0-92.2) fL MCH 33.3 H (25.7-32.2) pg MCHC 34.9 (32.3-36.5) g/dL RDW 12.6 (11.6-14.4) % Plt Count 211 (163-337) x10^3/uL MPV 9.5 (9.4-12.4) fL Gran % 73.4 H (34.0-67.9) % Immature Gran % (Auto) 0.2 (0.001-0.429) % Nucleat RBC Rel Count 0.0 (0.00-0.2) % Eos # (Auto) 0.17 (0.04-0.54) x10^3/uL Immature Gran # (Auto) 0.01 (0.001-0.031) x10^3u/L Absolute Lymphs (auto) 0.75 L (1.32-3.57) x10^3/uL Absolute Monos (auto) 0.48 (0.30-0.82) x10^3/uL Absolute Nucleated RBC 0.00 (0.00-0.012) x10^3u/L Lymphocytes % 13.8 L (21.8-53.1) % Monocytes % 8.8 (5.3-12.2) % Eosinophils % 3.1 (0.8-7.0) % Basophils % 0.7 (0.2-1.2) % Absolute Granulocytes 3.98 (1.78-5.38) x10^3/uL Basophils # 0.04 (0.01-0.08) x10^3/uL Sodium 133 L (135-145) mmol/L Potassium 3.4 L (3.5-5.1) mmol/L Chloride 101 (98-107) mmol/L Carbon Dioxide 23 (22-30) mmol/L Anion Gap 12.6 (5-15) MEQ/L BUN 7 L (9-20) mg/dL Creatinine 0.85 (0.66-1.25) mg/dL Estimated GFR 110.6 ML/MIN Glucose 187 H (74-106) mg/dL Lactic Acid 3.1 H (0.4-2.0) Calcium 9.3 (8.4-10.2) mg/dL Total Bilirubin 0.60 (0.2-1.3) mg/dL AST 37 (17-59) U/L ALT 49 (0-50) U/L Alkaline Phosphatase 76 (38-126) U/L Serum Total Protein 7.9 (6.3-8.2) g/dL Albumin 4.4 (3.5-5.0) g/dL - Progress Progress Note: 09/26/25 13:49 Discussed ultrasound results, pain has persisted, he states the swelling to his distal forearm and hand have gotten worse over the last several days, consult to hospitalist, will place in observation - Departure Departure Disposition: Observation Clinical Impression: Superficial thrombophlebitis of arm Qualifiers: Laterality: right Qualified Code(s): I80.8 - Phlebitis and thrombophlebitis of other sites Condition: Stable Critical Care Time: No Referrals: [facility] [Primary Care Provider, UNKNOWN] - Follow up/PCP as directed
--- NOTE | 2025-09-26 11:37 | XRAY ---
Indication: Cough. Comparison: None PA/lateral chest inflated and clear. Heart and mediastinal structures within normal limits. Bony thorax intact. Impression: Nonacute chest.
[2025-09-26 12:11] LABS: BASOPHIL % 0.7 % (0.2-1.2); Basophil (Absolute #) 0.04 x10^3/uL (0.01-0.08); Eosinophil (Absolute #) 0.17 x10^3/uL (0.04-0.54); Hematocrit 38.4 % (40.1-51.0); Hemoglobin 13.4 g/dL (13.7-17.5); IMMATURE GRAN # 0.01 x10^3u/L (0.001-0.031); IMMATURE GRAN % 0.2 % (0.001-0.429); Lymphocyte (Absolute #) 0.75 x10^3/uL (1.32-3.57); Mean Corpuscular Hemoglobin 33.3 pg (25.7-32.2); Mean Corpuscular Hgb Concent. 34.9 g/dL (32.3-36.5); Monocyte (Absolute #) 0.48 x10^3/uL (0.30-0.82); NUCLEATED RBC # 0.00 x10^3u/L (0.00-0.012); NUCLEATED RBC % 0.0 % (0.00-0.2); Platelet Count 211 x10^3/uL (163-337); Red Blood Count 4.03 x10^6/uL (4.63-6.08); White Blood Count 5.4 x10^3/uL (4.23-9.07)
[2025-09-26] MEDS ORDERED: Zofran 4 MG/2 ML VIAL ONE (12:17)
[2025-09-26] MEDS ORDERED: MORPHINE SULFATE 4 MG INJ ONE ×2 (12:18→14:00)
[2025-09-26] MEDS: Zofran 4 MG/2 ML VIAL IV ONE (12:19)
[2025-09-26] MEDS: MORPHINE SULFATE 4 MG INJ IV ONE ×2 (12:20→14:02)
[2025-09-26 12:24] LABS: Calcium 9.3 mg/dL (8.4-10.2); Carbon Dioxide 23.0 mmol/L (22-30); Creatinine 1 0.85 mg/dL (0.66-1.25); EST GLOMERULAR FILTRATION RATE 110.6 ML/MIN; Glucose 187.0 mg/dL (74-106); Potassium 3.4 mmol/L (3.5-5.1); SGOT/AST 37.0 U/L (17-59); SGPT/ALT 49.0 U/L (0-50); Total Protein 7.9 g/dL (6.3-8.2)
--- NOTE | 2025-09-26 13:33 | XRAY ---
Indication: Pain. Two-dimensional sonogram and color Doppler imaging major venous vessels right upper extremity performed. Comparison: None Targeted ultrasound over right forearm, region of interest demonstrates occluding thrombi in a superficial vein. No thrombus seen in the visualized right jugular, subclavian, axillary, brachial, basilic, cephalic, radial, and ulnar veins. Impression: Forearm demonstrates occluding thrombi in a superficial vein. Remaining right upper extremity venous sonogram is negative.
[2025-09-26] MEDS ORDERED: Protonix 40MG Tablet PO PRN (14:56)
[2025-09-26] MEDS ORDERED: HUMALOG SQ PRN (14:59)
[2025-09-26] MEDS ORDERED: IBUPROFEN 800 MG PO PRN (15:07)
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
[2025-09-26] MEDS ORDERED: MOTRIN 400 MG PO PRN (15:21)
[2025-09-26 15:27] LABS: INR 0.95 (0.8-3.0); PROTIME 10.7 SECONDS (9.4-12.5)
[2025-09-26] MEDS: ULTRAM 50 MG PO PRN (15:43)
[2025-09-26] MEDS: Klor Con PO ONE (15:43)
[2025-09-26] MEDS ORDERED: ULTRAM 50 MG PO PRN (16:09)
[2025-09-26] MEDS: ULTRAM 50 MG PO ONE (17:03)
[2025-09-26] MEDS: Glucophage 500 MG PO SCH (17:09)
[2025-09-26] MEDS ORDERED: MORPHINE SULFATE 2 MG INJ IV PRN (18:54)
[2025-09-26] MEDS: MORPHINE SULFATE 4 MG INJ IV PRN (19:16)
[2025-09-26] MEDS: Cozaar 50 MG PO SCH (22:59)
[2025-09-26] MEDS: hydroDIURIL 25 MG PO SCH (22:59)
[2025-09-26] MEDS: Lantus Insulin SQ SCH (23:00)
[2025-09-26] MEDS: Effexor XR 75 MG PO SCH (23:00)
[2025-09-27] MEDS: MORPHINE SULFATE 4 MG INJ IV ONE (00:42)
[2025-09-27] MEDS: Zofran 4 MG/2 ML VIAL IV PRN (02:13)
[2025-09-27 05:04] LABS: Hematocrit 36.3 % (40.1-51.0); Hemoglobin 12.1 g/dL (13.7-17.5); Mean Corpuscular Hemoglobin 32.1 pg (25.7-32.2); Mean Corpuscular Hgb Concent. 33.3 g/dL (32.3-36.5); Platelet Count 207 x10^3/uL (163-337); Red Blood Count 3.77 x10^6/uL (4.63-6.08); White Blood Count 5.3 x10^3/uL (4.23-9.07)
[2025-09-27 05:29] LABS: Calcium 8.9 mg/dL (8.4-10.2); Carbon Dioxide 24.0 mmol/L (22-30); Creatinine 1 0.89 mg/dL (0.66-1.25); EST GLOMERULAR FILTRATION RATE 109.1 ML/MIN; Glucose 129.0 mg/dL (74-106); Potassium 3.1 mmol/L (3.5-5.1); SGOT/AST 31.0 U/L (17-59); SGPT/ALT 39.0 U/L (0-50); Total Protein 7.3 g/dL (6.3-8.2)
[2025-09-27 05:45] LABS: Total Cells Counted 100
[2025-09-27 05:46] LABS: Microcytosis 1+
[2025-09-27] MEDS: K-LYTE PO SCH (08:14)
[2025-09-27] MEDS: Lidoderm Patch 5% TOP SCH (08:37)
[2025-09-27 09:11] VITALS: RESP 20
[2025-09-27] MEDS ORDERED: hydroDIURIL 25 MG PO SCH (10:00)
[2025-09-27] MEDS ORDERED: Effexor XR 75 MG PO SCH (10:00)
[2025-09-27] MEDS ORDERED: Cozaar 50 MG PO SCH (10:00)
[2025-09-27] MEDS ORDERED: Lantus Insulin SQ SCH (10:00)
[2025-09-27] MEDS: ENOXAPARIN SODIUM SQ SCH (10:15)
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
[2025-09-27] MEDS: hydroDIURIL 25 MG PO ONE (12:10)
[2025-09-27 12:15] VITALS: O2SAT 95
[2025-09-27] MEDS: PERCOCET TABLET 5/325MG PO PRN (12:33)
[2025-09-27 14:22] LABS: Potassium 3.8 mmol/L (3.5-5.1)
[2025-09-27 16:46] VITALS: BP 173/88; PULSE 110; TEMP 97.4
[2025-09-27] MEDS ORDERED: REMOVE PATCH REMINDER TOP SCH (22:00)
[2025-09-28] MEDS ORDERED: hydroDIURIL 25 MG PO ONE (11:43)
== END 2025-09-27 16:59 | disposition home or self-care (01) ==
LOC: ED 10:57 → MED SURG 14:10
PROVIDERS: ADMIT Internal Medicine; ATTEND Internal Medicine
DX: I80.8 Phlebitis and thrombophlebitis of other sites (principal); E87.6 Hypokalemia; E87.20 Acidosis, unspecified; I10 Essential (primary) hypertension; E11.65 Type 2 diabetes mellitus with hyperglycemia; E66.01 Morbid (severe) obesity due to excess calories; M79.601 Pain in right arm; F17.200 Nicotine dependence, unspecified, uncomplicated; Z79.899 Other long term (current) drug therapy